=== PATIENT | female | born 1960 | race Two or more races ===

== ENCOUNTER 2022-12-22 16:42 | Inpatient (IN) | payer OTHER ==
[~2022-12-22] VITALS: Ht 167.6 cm; Wt 136.5 kg
[2022-12-27] MEDS ORDERED: LISINOP PO (09:00)
[2022-12-27] MEDS ORDERED: SYNTHROID88 MCG PO (09:00)
[2022-12-27] MEDS ORDERED: FLECAINIDE ACE100 MG PO (09:01)
[2022-12-27] MEDS ORDERED: XARELTO20 M1 PO (09:01)
[2022-12-27] MEDS ORDERED: LIPITOR20 MG PO (09:02)
[2022-12-27] MEDS ORDERED: HORIZANT300 MG PO (09:02)
[2022-12-27] MEDS ORDERED: FOLIC A PO (09:02)
[2022-12-27] MEDS ORDERED: MULTI VITAMIN1 EACH PO (09:03)
[2022-12-27] MEDS ORDERED: VITAMIN D3 PO (09:03)
[2023-01-01] MEDS ORDERED: CHLORTHALIDONE25 MG (08:28)
[2023-01-01] MEDS ORDERED: AMOXICILLIN500 MG (08:28)
[2023-01-01] MEDS ORDERED: TRIAMTERENE-HC1 EAC3 (08:28)
[2023-01-01] MEDS ORDERED: FAMOTIDINE40 MG (08:28)
[2023-01-01] MEDS ORDERED: FOLIC ACID1 MG (08:28)
[2023-01-01] MEDS ORDERED: DICLOFENAC SOD100 GM (08:28)
[2023-01-01] MEDS ORDERED: LISINOPRIL2.5 MG (08:28)
[2023-01-01] MEDS ORDERED: VITAMIN D310 MC4 (08:29)
[2023-01-03] MEDS ORDERED: OXYC1TAB9 PO (06:34)
[2023-01-03] MEDS ORDERED: BACTRIM DS TAB1 EACH PO (06:34)
[2023-01-03] MEDS ORDERED: XARELTO20 MG PO (06:34)
[2023-01-03] MEDS ORDERED: INTEGRA PLUS C1 EACH PO (06:34)
== END 2023-01-03 16:27 | DRG 470 ==
LOC: O/R 01-01 05:30 → SURG 01-01 07:00
PROVIDERS: ADMIT Orthopaedic Surgery Sports Medicine; ATTEND Orthopaedic Surgery Sports Medicine
PROC: 0SRC0J9 Replacement of Right Knee Joint with Synthetic Substitute, Cemented, Open Approach (ICD-10-PCS; principal; 2023-01-01 07:00)
DX: M17.11 Unilateral primary osteoarthritis, right knee (principal); I10 Essential (primary) hypertension; Z96.651 Presence of right artificial knee joint; I48.91 Unspecified atrial fibrillation; Z20.822 Contact with and (suspected) exposure to COVID-19